=== PATIENT | female | born 1995 | race Caucasian/White ===

== ENCOUNTER → 2016-09-03 | Outpatient (CLI) | payer OTHER ==
[~2016-09-03] MED LIST: PERCOCET 5-3251 EACH PO
== END ==
LOC: RAD 15:29
DX: M54.2 Cervicalgia (principal); M54.9 Dorsalgia, unspecified; M25.562 Pain in left knee; M25.572 Pain in left ankle and joints of left foot; Z53.9 Procedure and treatment not carried out, unspecified reason

== ENCOUNTER 2017-03-02 17:27 | Emergency (ER) | payer OTHER ==
[2017-03-02 19:37] LABS: HEMOGLOBIN 13.7 gm/dl (12.3-15.3); RED BLOOD COUNT 4.9 M/UL (4.00-5.10)
[2017-03-02 19:58] LABS: BUN/CREATININE RATIO 14 (0-10)
== END 2017-03-02 22:20 | disposition home or self-care (01) ==
LOC: ER1 17:27
PROVIDERS: Emergency Medicine
DX: R07.89 Other chest pain (principal); N39.0 Urinary tract infection, site not specified; R06.02 Shortness of breath; F17.210 Nicotine dependence, cigarettes, uncomplicated
CPT/HCPCS: 36415; 80053; 80307; 81001; 83690; 83880; 84484; 84703; 85025; 87040; 87077; 87086; 87186; 93005; 96361; 96374; 99285; J0696; J7050; Q9963

== ENCOUNTER 2022-02-13 04:01 | Emergency (ER) | payer OTHER ==
[~2022-02-13 04:01] MED LIST changes: +BUPRENORPHINE HC8 MG SL; +COLACE 100MG C100 MG PO; +IBUPROFEN600 MG PO; +NEURONTIN400 MG PO; +SUBUTEX 8 MG TAB8 MG SL
[2022-02-13] MEDS ORDERED: AMOXICILLIN500 MG PO (04:41)
== END 2022-02-13 04:55 | disposition home or self-care (01) ==
LOC: ER1 04:01
DX: K02.9 Dental caries, unspecified (principal)
CPT/HCPCS: 99282